=== PATIENT | male | born 1980 | race Caucasian/White ===

== ENCOUNTER 2025-04-06 20:36 | Emergency (ER) | payer MEDICAID ==
[~2025-04-06] VITALS: Ht 170.2 cm; Wt 46.0 kg
[2025-04-06 21:00] VITALS: BP 134/77; PULSE 84; RESP 16; TEMP 98.6; O2SAT 99
[2025-04-06] MEDS ORDERED: IBUP-864 PO (21:04)
[2025-04-06] MEDS ORDERED: AMOX-100 PO (21:04)
--- NOTE | 2025-04-06 21:05 | Physician Documentation ---
HPI ~ General Chief Complaint: Tooth Problem Stated Complaint: TOOTH PAIN Time Seen by MD: 21:02 Source: patient Mode of Arrival: POV Exam Limitations: no limitations History of Present Illness HPI Comment 44-year-old male with poor dentition as complaining of dental pain that is been going on for several months but worsening over the past week. Patient used to live in [place] they told him that he needed an oral surgeon. Patient is currently residing [place]. Does not have a dentist. No fevers swelling difficulty breathing or swallowing. Medication Reconciliation Allergies: Coded Allergies: No Known Allergies (Unverified , 04/06/25) Scheduled Amoxicillin Trihydrate (Amoxicillin), 1 CAP PO Q8H Ibuprofen (Ibu), 1 TAB PO Q8H Past Medical History Past Medical History: No Pertinent History Past Surgical History: noncontributory Smoking Status: Current every day smoker Lives In: Home Occupation: unemployed Review of Systems All Other Systems at this time: Reviewed and Negative ENT: Reports: mouth pain Physical Exam Physical Exam General: Alert, no apparent distress. HEENT: moist mucous membranes. Multiple caries and missing teeth 2. And 3 discolored and broken to gumline tender to tap Neck: Full range of motion. Respiratory: No respiratory distress speaking in full sentences Chest: No accessory muscle use. Cardiovascular: Appears well perfused Neurologic: Oriented x4. Psychiatric: Normal mood and affect. Skin: Normal color, warm and dry. No edema, no ecchymosis. Progress Results/Orders Results/Orders Vital Signs 04/06/25 21:00 Temp 98.6 Pulse 84 Resp 16 B/P (MAP) 134/77 Pulse Ox 99 O2 Flow Rate 0 Medical Decision Making Additional information obtaine: N/A Findings Poor dentition no obvious abscess or facial swelling antibiotics prescribed patient to follow up with dental Differential Dx:Considerations: Include: Facial Cellulitis, Periapical abscess, Peridontal abscess, Tooth Fracture, Other Departure Time of Disposition: 21:03 Disposition: 01 HOME / SELF CARE / HOMELESS Impression: Primary Impression: Toothache Additional Impression: Dental caries Condition: Stable Discharge Instructions: Dental Caries, Adult Additional Instructions: Take ibuprofen and antibiotics as prescribed. It is imperative that she find a dentist to evaluate for complete evaluation and treatment. Referrals: NO PRIMARY CARE PROVIDER (PCP) Prescriptions Amoxicillin Trihydrate (Amoxicillin) 500 Mg Capsule 1 CAP PO Q8H for 10 Days, #30 CAP Prov: TANI,NATALIA K [employer] SUPERVISOR 04/06/25 Ibuprofen (Ibu) 800 Mg Tablet 1 TAB PO Q8H for 7 Days, #21 TAB 0 Refills Prov: NATALIA FREIRE NP 04/06/25 Education Educated: Patient Educated regarding: diagnosis, treatment, need for follow up Signature Scribe Signature: No scribe Attestation: The note accurately reflects work and decisions made by me.Natalia ZARCO 04/06/25 21:05 NATALIA FREIRE NP Apr 06, 2025 21:05
== END 2025-04-06 21:15 | disposition home or self-care (01) ==
LOC: ER 20:38
DX: K02.9 Dental caries, unspecified (principal); F17.200 Nicotine dependence, unspecified, uncomplicated; Z79.899 Other long term (current) drug therapy; Z56.0 Unemployment, unspecified
CPT/HCPCS: 99283